=== PATIENT | female | born 1980 | race Caucasian/White ===

== ENCOUNTER 2016-05-02 16:44 | Emergency (ER) | payer MEDICAID ==
[~2016-05-02 16:44] MED LIST: CORTEF10 MG PO; EFFEXOR XR DPS150 MG PO; FLEXERIL-DPS10 MG PO; KLONOPIN DPS1 MG PO; LAMICTAL DPS25 MG PO; LATUDA60 MG PO; PROTONIX40 MG PO; PROVIGIL100 MG PO; WELLBUTRIN XL300 MG PO
--- NOTE | 2016-05-04 12:40 | ER ---
ADMIT: 05/02/2016 RM/LOC: ER [facility] MR#: [id number] [facility] [address] [place] [id number] TACOS BENNETTREINALDO [address] [place] [address] Emergency Room Report SEX: F AGE: 36 : 1980 DATE: 05/02/2016 ADDENDUM: This is a 36-year-old white female coming in with abdominal pain. She has had gastric bypass. She has had some kind of recurrent problems with this. She had seen Dr. Lee last week. He had given her some Percocet. She was doing okay and then started to get worse again. She had also had a little bit of bout of colitis with that. CT scan is compared with the other. It looks okay at this time. I gave 20 of Percocet to get her through until she gets to follow up with Dr. Lee, thought to be somewhat of a recurring problem since her surgery, I think. CONDITION ON DISCHARGE: Fair. Santi Sylvester MD/ wilber JOB #: [id number] CC: Santi Sylvester MD, Attending Physician Sincere Lee MD, Family Physician
== END 2016-05-02 18:35 | disposition home or self-care (01) ==
LOC: ER 16:44
DX: R10.84 Generalized abdominal pain (principal); F31.9 Bipolar disorder, unspecified; Z90.710 Acquired absence of both cervix and uterus; F41.9 Anxiety disorder, unspecified; Z79.899 Other long term (current) drug therapy